=== PATIENT | female | born 1980 | race Caucasian/White ===

== ENCOUNTER 2018-02-21 07:24 | Emergency (ER) | payer OTHER ==
[2018-02-21 08:32] LABS: BILIRUBIN,URINE NEGATIVE (NEG); CLARITY,URINE CLEAR; COLOR,URINE YELLOW; GLUCOSE,URINE NEGATIVE (NEG); NITRITE,URINE NEGATIVE (NEG); PROTEIN,URINE >=300 mg/dL (NEG-TRACE); UROBILINOGEN,URINE 0.2 mg/dL (0.2 mg/dL)
[2018-02-21 08:38] LABS: BARBITURATES NEG (NEG); BENZODIAZEPINES NEG (NEG); CANNABINOIDS NEG (NEG); COCAINE NEG (NEG); METHADONE NEG (NEG); OPIATES NEG (NEG); PHENCYCLIDINE NEG (NEG)
[2018-02-21 08:39] LABS: AMPHETAMINE/METHAMPHETAMINE POS (NEG); ETHANOL, URINE NEG (NEG)
[2018-02-21 08:44] LABS: BACTERIA,URINE FEW /HPF (0-FEW); RBC,URINE 0 /HPF (0-2)
[2018-02-21 08:45] LABS: AMORPHOUS SEDIMENT,UR PRESENT /HPF
[2018-02-21] MEDS: ACETAMINOPHEN 500 MG TABLET PO (10:57)
== END 2018-02-21 12:10 | disposition home or self-care (01) ==
LOC: ER 07:24
DX: S00.83XA Contusion of other part of head, initial encounter (principal); R00.0 Tachycardia, unspecified; F15.10 Other stimulant abuse, uncomplicated; I16.0 Hypertensive urgency; F41.9 Anxiety disorder, unspecified; E66.9 Obesity, unspecified; Z68.42 Body mass index [BMI] 45.0-49.9, adult; Z71.6 Tobacco abuse counseling; Z91.14 Patient's other noncompliance with medication regimen; Y08.89XA Assault by other specified means, initial encounter; Y93.89 Activity, other specified; Y92.89 Other specified places as the place of occurrence of the external cause; Y99.8 Other external cause status
CPT/HCPCS: 70450; 80307; 81001; 99285-25